=== PATIENT | male | born 1960 | race Caucasian/White ===

== ENCOUNTER → 2017-08-25 07:26 | Outpatient (CLI) | payer BC, SELFPAY ==
[2017-08-25 08:26] LABS: Add Manual Diff / Slide Review NO; Basophils Percent Auto 0.9 % (0-2); Eosinophils Percent Auto 3.1 % (2-4); Hematocrit 40.3 % (41-53); Hemoglobin 13.8 g/dL (13.5-17.5); Lymphocytes Percent Auto 28.7 % (25-40); Mean Corpuscular HGB Conc 34.2 % (30-36); Mean Corpuscular Hemoglobin 31.2 PG (26-34); Mean Corpuscular Volume 91.1 fL (80-100); Monocytes Percent Auto 9.8 % (3-14); Neutrophils Absolute Auto 2700 /uL (3000-5900); Neutrophils Percent Auto 57.5 % (50-75); Platelet Count 171 X10^3/uL (150-400); Red Blood Cell Count 4.42 X10^6/uL (4.5-5.9); Red Cell Distribution Width 12.7 % (11.6-14.8); White Blood Cell Count 4.7 X10^3/uL (4.5-11.0)
[2017-08-25 09:09] LABS: Alanine Aminotransferase 36 IU/L (21-72); Albumin 4.5 g/dL (3.5-5.0); Albumin Globulin Ratio 1.7 (1.0-2.8); Alkaline Phosphatase 55 U/L (38-126); Aspartate Aminotransferase 32 IU/L (17-59); BUN Creatinine Ratio 12.5 (6-22); Bilirubin Total 0.7 mg/dL (0.2-1.3); Calcium 9.7 mg/dL (8.4-10.2); Cholesterol 165 mg/dL (140-199); Estimated Glomerular Filt Rate > 60.0 mL/min (>60); Globulin 2.7 g/dL (1.7-4.1); Glucose 96 mg/dL (70-100); HDL Cholesterol 61 mg/dL (40-60); HEMOLYSIS < 15 (0-50); LDL Cholesterol Calculated 89 mg/dL (<100); Potassium 4.2 mmol/L (3.4-5.1); Sodium 143 mmol/L (137-145); Total Protein 7.2 g/dL (6.3-8.2); Triglycerides 77 mg/dL (35-150)
[2017-08-25 09:28] LABS: Thyroid Stimulating Hormone 3.19 uIU/mL (0.47-4.68)
== END ==
PROVIDERS: PCP Family Medicine; Visit Provider Family Medicine
DX: Z13.1 Encounter for screening for diabetes mellitus (principal); Z13.0 Encounter for screening for diseases of the blood and blood-forming organs and certain disorders involving the immune mechanism; E78.2 Mixed hyperlipidemia; Z13.29 Encounter for screening for other suspected endocrine disorder; Z12.5 Encounter for screening for malignant neoplasm of prostate
CPT/HCPCS: 36415; 80053; 80061; 84153; 84443; 85025

== ENCOUNTER 2018-08-17 13:28 | Day surgery (SDC) | payer BC, SELFPAY ==
--- NOTE | 2018-08-17 | PATH_ITS ---
[facility] Accession Number: [id number] . 01 Material submitted: . PART A: hepatic flexure - SMALL SESSILE POLYP HEPATIC FLEXURE PART B: rectum - DISTAL RECTAL FEDUNCULATED POLYP . 02 Diagnosis: A. Hepatic Flexure, Small Sessile Polyp, Biopsy: Tubular adenoma. . B. Distal Rectum, Pedunculated Polyp, Biopsy: Hyperplastic polyp. 08/19/2018 . 02 Electronically signed: . Sierra Foreman MD, Pathologist NPI- [id number] . 01 Gross description: . Part A: SMALL SESSILE POLYP HEPATIC FLEXURE: Received in formalin is 1 fragment(s) of gallegos, soft tissue measuring 0.4 x 0.3 x 0.3 cm submitted entirely in 1 cassette(s) Part B: DISTAL RECTAL FEDUNCULATED POLYP: Received in formalin is 1 fragment(s) of gallegos, soft tissue measuring 0.4 x 0.4 x 0.4 cm submitted entirely in 1 cassette(s) /CKI /CKI . 02 Pathologist provided ICD-10: D12.3 . 02 CPT . 916955, [id number] Performed at: 01 [facility] [address], [place], [place] [id number] MD Mulugeta Hoover MD Phone: [phone] Performed at: 02 [facility] [place] [address] [place], [place] [id number] MD Sierra Foreman MD Phone: [phone]
[2018-08-17 13:48] VITALS: BP 155/85; PULSE 60; RESP 16; TEMP 36.5; O2SAT 99; BMI 24.3
[2018-08-17 13:57] VITALS: BMI 24.3
[2018-08-17] MEDS: SODIUM CHLORIDE 0.9% 1,000 ML 200 ML IV (13:58)
--- NOTE | 2018-08-17 14:07 | PM.HP.1 ---
History of Present Illness Date Patient Seen: 08/17/18 Time Patient Seen: 14:08 Chief complaint: [id number] Narrative: 58-year-old man presents for 1st ever screening colonoscopy He is without bowel complaints. No family history of colon/rectal cancer or colon/rectal polyps Generally feels quite well He tolerated his prep Patient History Medical History (Updated 09/02/17 @ 15:26 by Christie Everett) Acne (Chronic) Factor V Leiden (Chronic) Mitral valve prolapse (Chronic ~1981) Musculoskeletal disorder (Chronic ~2000) Tinnitus (Chronic ~2009) Chicken pox (Resolved) Surgical History (Updated 09/02/17 @ 15:26 by Christie Everett) Anesthesia (Resolved) Surgical procedure planned (Resolved ~1985) Family History (Updated 08/20/15 @ 00:00 by Conversion Provider) Brother Age: 61 Diabetes mellitus Mother Age: 94 Hypertension Grandfather Heart disease Grandmother Cancer Sister Age: 60 Hypertension Father No problems noted. Grandfather No problems noted. Grandmother No problems noted. Social History household members: spouse and children Family & Social History Family History (Updated 08/20/15 @ 00:00 by Conversion Provider) Brother Age: 61 Diabetes mellitus Mother Age: 94 Hypertension Grandfather Heart disease Grandmother Cancer Sister Age: 60 Hypertension Father No problems noted. Grandfather No problems noted. Grandmother No problems noted. Social History: household members spouse,children Meds Home Medications Medication Instructions Recorded Confirmed Type CA PANTOTHENATE/FOLIC ACID/VIT 1 tab PO Q DAY #0 09/23/11 08/17/18 History (MULTIVITAMIN) aspirin 81 mg PO QDAY #0 06/14/12 08/17/18 History atorvastatin 10 mg tablet 10 mg PO HS #60 tab 08/05/18 08/17/18 Rx Allergies Allergy/AdvReac Type Severity Reaction Status Date / Time Sulfa (Sulfonamide Allergy Mild RASH Verified 08/17/18 13:43 Antibiotics) [SULFA (SULFONAMIDE ANTIBIOTICS)] Review of Systems Constitutional Constitutional: Denies fever(s) Eyes Eyes: Denies bulging eyes ENT Ears, Nose, Mouth, and Throat: No lip swelling Cardiovascular Cardiovascular: Denies generalize swelling Respiratory Respiratory: Denies stridor Gastrointestinal Gastrointestinal: Denies coffee ground emesis Musculoskeletal Musculoskeletal: Denies loss of height Integumentary/Breasts Skin/Breast: Denies wounds Neurologic Neurologic: Denies abnormal speech and Denies confusion Psychiatric Psychiatric: Denies confusion Endocrine Endocrine: Denies deepening of the voice Hematologic/Lymphatic Hematologic/Lymphatic: Denies lymphadenopathy Allergic/Immunologic Allergic/Immunologic: Denies lip swelling Exam Vital Signs (past 8 hours): - 08/17/18 13:48 Temperature 97.7 F Pulse Rate 60 Respiratory Rate 16 Blood Pressure 155/85 H Pulse Oximetry 99 Oxygen Delivery Method Room Air Const General: cooperative and healthy appearing Orientation: alert [facility] Head: normal to inspection Nose: nares normal Mouth: oral mucosae normal and lip normal Eyes Eyelids: eyelids normal Conjunctivae: conjunctivae normal Sclera: sclerae normal Neck Neck: supple and other (No thyromegally) Chest Chest: other (LCTAB , regular respiratory effort) Cardio Rhythm: regular rhythm Heart Sounds: S1 normal, S2 normal, no gallops, no murmurs and no rubs GI Other: Abdomen soft nontender nondistended Skin General: no rashes or lesions noted Neuro General: alert and awake Psych Appearance: grossly normal Affect: normal affect Assessment & Plan Assessment & Plan narrative: 58-year-old man presents for 1st ever screening colonoscopy Risks of surgery including bleeding, infection, perforation risk of , risk of missed lesion, risk of hypoxia all discussed Patient is ready to proceed
[2018-08-17] MEDS: MIDAZOLAM 5 MG/5 ML VIAL IV (14:46)
[2018-08-17] MEDS: fentaNYL 250 MCG/5 ML INJ IV (14:47)
[2018-08-17 15:20] VITALS: BP 103/63; PULSE 53; RESP 20; TEMP 36.2; O2SAT 95
--- NOTE | 2018-08-17 15:20 | P.OP.ENDO_ITS ---
Operative Date/Time/Diagnoses Date of procedure: 08/17/18 Time of procedure: 15:13 Pre-op diagnosis: Screening colonoscopy Post-op diagnosis: other (Colon polyp, rectal polyp, diverticulosis) Procedure & Clinicians Study performed: Screening colonoscopy, cold biopsy forceps polypectomy, hot snare polypectomy Same procedure as scheduled: No (As above) Indications: 58-year-old man of average colorectal cancer risk presents for 1st ever screening colonoscopy Surgeon: Keon Sanders Procedure Notes SCOAP/Timeout: completed Procedure in detail: Patient was taken to the endoscopy suite, a time-out was completed. He was sedated with midazolam and fentanyl. A digital rectal exam was performed that demonstrated an enlarged but soft prostate no nodules or leasions palpated. 160 cm colonoscope was introduced. In the rectum insufflated. Almost immediately a small pedunculated distal rectal polyp was identified. This was left in place and removed later in the case. The colonoscope was then advanced up through the rectosigmoid junction through the sigmoid colon which was markedly tortuous and contained extensive diverticular disease. Eventually were able to enter into the left colon navigate the splenic flexure and moved through the triangular folds of the transverse colon. The hepatic flexure was readily negotiated and the right-sided colon was entered - this also had diverticular disease. Cecum was visualized with IC valve gross foot as well as the appendiceal orifice. The endoscope was slowly withdrawn. At the hepatic flexure there was a small sessile polyp which was removed with cold biopsy forceps. The remainder the scope was notable for diverticular disease within the left colon as well as sigmoid. The distal rectal polyp was re-identified and removed with a hot snare. It was suctioned and obtained via suction trap. The scope was retroflexed demonstrating no additional distal rectal lesion Prep was adequate Scope withdrawal time: 14 minutes Sedation minutes: 57 Findings: diverticulosis (As above) and polyp (As above) Specimen(s): other (1. Hepatic flexure small sessile polyp, 2. Distal rectal pedunculated polyp small ) Complications: none Impression: -enlarged prostate -extensive sigmoid diverticulosis, more limited diverticulosis of the right and left colon -small sessile polyp of the hepatic flexure status post -cold biopsy forcep polypectomy -small pedunculated distal rectal polyp status post hot snare polypectomy Recommendations: Colonscopy in 5 years Plan for aftercare: PACU and home Follow up: as needed Disposition: PACU
[2018-08-17 15:25] VITALS: BP 110/65; PULSE 54; RESP 20; O2SAT 96
[2018-08-17 15:30] VITALS: BP 117/78; PULSE 78; RESP 18; O2SAT 94
[2018-08-17 15:35] VITALS: BP 120/67; PULSE 62; RESP 15; TEMP 36.3; O2SAT 96
[2018-08-17 15:40] VITALS: BP 109/67; PULSE 54; RESP 15; TEMP 36.3; O2SAT 99
== END 2018-08-17 15:51 | disposition home or self-care (01) ==
PROVIDERS: PCP Family Medicine; Visit Provider Surgery
PROC: 0DJD8ZZ Inspection of Lower Intestinal Tract, Via Natural or Artificial Opening Endoscopic (ICD-10-PCS; CPT 45378; principal; 2018-08-17 15:00)
DX: Z12.11 Encounter for screening for malignant neoplasm of colon (principal); K57.30 Diverticulosis of large intestine without perforation or abscess without bleeding; N40.0 Benign prostatic hyperplasia without lower urinary tract symptoms; D68.51 Activated protein C resistance; D12.3 Benign neoplasm of transverse colon
CPT/HCPCS: 45385; 45380; 99152; 99153; J2250; J3010

== ENCOUNTER → 2018-10-12 07:13 | Outpatient (CLI) | payer BC, SELFPAY ==
[2018-10-12 07:55] LABS: Add Manual Diff / Slide Review NO; Basophils Absolute Auto 0 /uL (0-100); Basophils Percent Auto 0.8 % (0-2); Eosinophils Absolute Auto 100 /uL (0-450); Eosinophils Percent Auto 2.3 % (2-4); Hematocrit 42.9 % (41-53); Hemoglobin 14.7 g/dL (13.5-17.5); Lymphocytes Absolute Auto 1300 /uL (1100-4500); Lymphocytes Percent Auto 26.6 % (25-40); Mean Corpuscular HGB Conc 34.3 % (30-36); Mean Corpuscular Hemoglobin 31.5 PG (26-34); Mean Corpuscular Volume 91.8 fL (80-100); Monocytes Absolute Auto 400 /uL (0-900); Monocytes Percent Auto 9.3 % (3-14); Neutrophils Absolute Auto 2900 /uL (1500-7000); Platelet Count 205 X10^3/uL (150-400); Red Blood Cell Count 4.67 X10^6/uL (4.5-5.9); Red Cell Distribution Width 12.8 % (11.6-14.8); White Blood Cell Count 4.8 X10^3/uL (4.5-11.0)
[2018-10-12 08:05] LABS: Alanine Aminotransferase 31 IU/L (21-72); Albumin 4.6 g/dL (3.5-5.0); Albumin Globulin Ratio 1.8 (1.0-2.8); Alkaline Phosphatase 59 U/L (38-126); Aspartate Aminotransferase 31 IU/L (17-59); BUN Creatinine Ratio 13.3 (6-22); Bilirubin Total 0.7 mg/dL (0.2-1.3); Blood Urea Nitrogen 12 mg/dL (9-20); Carbon Dioxide 26 mmol/L (22-32); Chloride 108 mmol/L (98-107); Cholesterol 164 mg/dL (140-199); Estimated Glomerular Filt Rate > 60.0 mL/min (>60); Globulin 2.6 g/dL (1.7-4.1); Glucose 101 mg/dL (70-100); HDL Cholesterol 44 mg/dL (40-60); HEMOLYSIS < 15 (0-50); LDL Cholesterol Calculated 101 mg/dL (<100); Potassium 4.4 mmol/L (3.4-5.1); Sodium 143 mmol/L (137-145); Total Protein 7.2 g/dL (6.3-8.2); Triglycerides 95 mg/dL (35-150)
[2018-10-12 08:34] LABS: Prostate Specific Antigen Scrn 1.33 ng/mL (0.1-4.0)
== END ==
PROVIDERS: PCP Family Medicine; Visit Provider Family Medicine
DX: E78.2 Mixed hyperlipidemia (principal); Z12.5 Encounter for screening for malignant neoplasm of prostate; Z13.29 Encounter for screening for other suspected endocrine disorder; Z13.6 Encounter for screening for cardiovascular disorders
CPT/HCPCS: 36415; 80053; 80061; 84443; 85025; G0103

== ENCOUNTER → 2020-02-23 07:45 | Outpatient (CLI) | payer BC, SELFPAY ==
[2020-02-23 08:36] LABS: Add Manual Diff / Slide Review NO; Basophils Absolute Auto 100 /uL (0-100); Basophils Percent Auto 1.5 % (0-2); Eosinophils Absolute Auto 200 /uL (0-450); Eosinophils Percent Auto 4.2 % (2-4); Hematocrit 39.9 % (41-53); Hemoglobin 13.5 g/dL (13.5-17.5); Lymphocytes Absolute Auto 1100 /uL (1100-4500); Lymphocytes Percent Auto 26.2 % (25-40); Mean Corpuscular HGB Conc 33.9 % (30-36); Mean Corpuscular Hemoglobin 31.4 PG (26-34); Mean Corpuscular Volume 92.6 fL (80-100); Monocytes Absolute Auto 400 /uL (0-900); Monocytes Percent Auto 9.1 % (3-14); Neutrophils Absolute Auto 2400 /uL (1500-7000); Platelet Count 175 X10^3/uL (150-400); Red Blood Cell Count 4.31 X10^6/uL (4.5-5.9); Red Cell Distribution Width 12.5 % (11.6-14.8); White Blood Cell Count 4.1 X10^3/uL (4.5-11.0)
[2020-02-23 09:33] LABS: Alanine Aminotransferase 29 IU/L (<50); Albumin 4.2 g/dL (3.5-5.0); Albumin Globulin Ratio 1.8 (1.0-2.8); Alkaline Phosphatase 52 U/L (38-126); Aspartate Aminotransferase 27 IU/L (17-59); BUN Creatinine Ratio 16.7 (6-22); Bilirubin Total 0.4 mg/dL (0.2-1.3); Blood Urea Nitrogen 12 mg/dL (9-20); Calcium 9.6 mg/dL (8.4-10.2); Carbon Dioxide 26 mmol/L (22-32); Chloride 106 mmol/L (98-107); Cholesterol 152 mg/dL (140-199); Estimated Glomerular Filt Rate > 60.0 mL/min (>60); Globulin 2.4 g/dL (1.7-4.1); Glucose 99 mg/dL (80-110); HDL Cholesterol 48 mg/dL (40-60); HEMOLYSIS < 15 (0-50); LDL Cholesterol Calculated 75 mg/dL (<100); Potassium 4.5 mmol/L (3.4-5.1); Sodium 138 mmol/L (137-145); Total Protein 6.6 g/dL (6.3-8.2); Triglycerides 146 mg/dL (35-150)
[2020-02-23 10:03] LABS: Prostate Specific Antigen Scrn 1.53 ng/mL (0.1-4.0)
[2020-02-23 10:04] LABS: Thyroid Stimulating Hormone 2.28 uIU/mL (0.47-4.68)
== END ==
PROVIDERS: PCP Family Medicine; Referring Provider Family Medicine; Visit Provider Family Medicine
DX: E78.2 Mixed hyperlipidemia (principal); Z12.5 Encounter for screening for malignant neoplasm of prostate
CPT/HCPCS: 36415; 80053; 80061; 84443; 85025; G0103

== ENCOUNTER → 2021-05-18 09:47 | Outpatient (CLI) | payer BC, SELFPAY ==
[2021-05-18 11:12] LABS: Add Manual Diff / Slide Review NO; Basophils Absolute Auto 0 /uL (0-100); Basophils Percent Auto 1.4 % (0-2); Eosinophils Absolute Auto 200 /uL (0-450); Eosinophils Percent Auto 5.3 % (2-4); Hematocrit 37.2 % (41-53); Hemoglobin 12.8 g/dL (13.5-17.5); Lymphocytes Absolute Auto 900 /uL (1100-4500); Lymphocytes Percent Auto 26.7 % (25-40); Mean Corpuscular HGB Conc 34.4 % (30-36); Monocytes Absolute Auto 300 /uL (0-900); Monocytes Percent Auto 10.4 % (3-14); Neutrophils Absolute Auto 1800 /uL (1500-7000); Neutrophils Percent Auto 56.2 % (50-75); Platelet Count 169 X10^3/uL (150-400); Red Cell Distribution Width 12.9 % (11.6-14.8); White Blood Cell Count 3.2 X10^3/uL (4.5-11.0)
[2021-05-18 11:33] LABS: Alanine Aminotransferase 20 IU/L (<50); Albumin 4.3 g/dL (3.5-5.0); Albumin Globulin Ratio 1.9 (1.0-2.8); Alkaline Phosphatase 40 U/L (38-126); Aspartate Aminotransferase 31 IU/L (17-59); BUN Creatinine Ratio 13.9 (6-22); Bilirubin Total 0.4 mg/dL (0.2-1.3); Blood Urea Nitrogen 11 mg/dL (9-20); Calcium 9.7 mg/dL (8.4-10.2); Carbon Dioxide 30 mmol/L (22-32); Chloride 107 mmol/L (98-107); Cholesterol 148 mg/dL (140-199); Estimated Glomerular Filt Rate > 60.0 mL/min (>60); Globulin 2.3 g/dL (1.7-4.1); Glucose 100 mg/dL (80-110); HDL Cholesterol 67 mg/dL (40-60); HEMOLYSIS < 15 (0-50); LDL Cholesterol Calculated 74 mg/dL (<100); Potassium 4.2 mmol/L (3.4-5.1); Sodium 140 mmol/L (137-145); Total Protein 6.6 g/dL (6.3-8.2); Triglycerides 37 mg/dL (35-150)
[2021-05-18 12:02] LABS: Prostate Specific Antigen Scrn 1.98 ng/mL (0.1-4.0)
[2021-05-18 12:55] LABS: TSH w/ Reflex to FT4 1.47 uIU/mL (0.47-4.68)
== END ==
PROVIDERS: PCP Family Medicine; Referring Provider Family Medicine; Visit Provider Family Medicine
DX: D68.51 Activated protein C resistance (principal); E78.2 Mixed hyperlipidemia; Z12.5 Encounter for screening for malignant neoplasm of prostate
CPT/HCPCS: 36415; 80053; 80061; 84443; 85025; G0103

== ENCOUNTER → 2021-09-03 09:48 | Outpatient (CLI) | payer BC, SELFPAY ==
[2021-09-03 10:40] LABS: Add Manual Diff / Slide Review NO; Basophils Absolute Auto 100 /uL (0-100); Basophils Percent Auto 1.4 % (0-2); Eosinophils Absolute Auto 200 /uL (0-450); Eosinophils Percent Auto 6.1 % (2-4); Hematocrit 39.3 % (41-53); Hemoglobin 13.5 g/dL (13.5-17.5); Lymphocytes Absolute Auto 1400 /uL (1100-4500); Lymphocytes Percent Auto 34.1 % (25-40); Mean Corpuscular HGB Conc 34.4 % (30-36); Mean Corpuscular Hemoglobin 31.8 PG (26-34); Mean Corpuscular Volume 92.4 fL (80-100); Monocytes Absolute Auto 400 /uL (0-900); Monocytes Percent Auto 9.5 % (3-14); Neutrophils Absolute Auto 1900 /uL (1500-7000); Neutrophils Percent Auto 48.9 % (50-75); Platelet Count 167 X10^3/uL (150-400); Red Blood Cell Count 4.25 X10^6/uL (4.5-5.9); Red Cell Distribution Width 12.8 % (11.6-14.8)
== END ==
PROVIDERS: PCP Family Medicine; Referring Provider Family Medicine; Visit Provider Family Medicine
DX: D72.819 Decreased white blood cell count, unspecified (principal)
CPT/HCPCS: 36415; 85025

== ENCOUNTER → 2022-06-17 09:11 | Outpatient (CLI) | payer BC, SELFPAY ==
[2022-06-17 09:48] LABS: Add Manual Diff / Slide Review NO; Basophils Absolute Auto 0 /uL (0-100); Basophils Percent Auto 0.8 % (0-2); Eosinophils Absolute Auto 200 /uL (0-450); Hematocrit 39.7 % (41-53); Hemoglobin 13.5 g/dL (13.5-17.5); Lymphocytes Absolute Auto 1400 /uL (1100-4500); Lymphocytes Percent Auto 30.1 % (25-40); Mean Corpuscular Hemoglobin 31.3 PG (26-34); Mean Corpuscular Volume 92.2 fL (80-100); Monocytes Absolute Auto 400 /uL (0-900); Monocytes Percent Auto 9.6 % (3-14); Neutrophils Absolute Auto 2500 /uL (1500-7000); Neutrophils Percent Auto 54.5 % (50-75); Platelet Count 183 X10^3/uL (150-400); Red Blood Cell Count 4.31 X10^6/uL (4.5-5.9); Red Cell Distribution Width 12.6 % (11.6-14.8); White Blood Cell Count 4.5 X10^3/uL (4.5-11.0)
[2022-06-17 10:05] LABS: HEMOLYSIS < 15 (0-50)
[2022-06-17 10:12] LABS: Alanine Aminotransferase 46 IU/L (<50); Albumin 4.3 g/dL (3.5-5.0); Albumin Globulin Ratio 1.7 (1.0-2.8); Alkaline Phosphatase 57 U/L (38-126); Aspartate Aminotransferase 37 IU/L (17-59); BUN Creatinine Ratio 18.3 (6-22); Bilirubin Total 0.6 mg/dL (0.2-1.3); Blood Urea Nitrogen 13 mg/dL (9-20); Calcium 9.3 mg/dL (8.4-10.2); Carbon Dioxide 27 mmol/L (22-32); Chloride 106 mmol/L (98-107); Cholesterol 169 mg/dL (140-199); Estimated Glomerular Filt Rate > 60 mL/min (>60); Globulin 2.5 g/dL (1.7-4.1); Glucose 91 mg/dL (80-110); HDL Cholesterol 56 mg/dL (40-60); LDL Cholesterol Calculated 88 mg/dL (<100); Potassium 4.1 mmol/L (3.4-5.1); Sodium 139 mmol/L (137-145); Total Protein 6.8 g/dL (6.3-8.2); Triglycerides 124 mg/dL (35-150)
[2022-06-20 04:27] LABS: Prostate Specific Antigen Scrn 1.79 ng/mL (0.1-4.0)
== END ==
PROVIDERS: PCP Family Medicine; Referring Provider Family Medicine; Visit Provider Family Medicine
DX: D68.51 Activated protein C resistance (principal); E78.2 Mixed hyperlipidemia; D72.819 Decreased white blood cell count, unspecified; Z12.5 Encounter for screening for malignant neoplasm of prostate
CPT/HCPCS: 36415; 80053; 80061; 85025; G0103

== ENCOUNTER → 2023-07-02 08:11 | Outpatient (CLI) | payer BC, SELFPAY ==
[2023-07-02 08:30] LABS: Add Manual Diff / Slide Review NO; Basophils Absolute Auto 0 /uL (0-100); Basophils Percent Auto 0.8 % (0-2); Eosinophils Absolute Auto 200 /uL (0-450); Eosinophils Percent Auto 4.2 % (2-4); Hematocrit 40.4 % (41-53); Hemoglobin 13.6 g/dL (13.5-17.5); Lymphocytes Absolute Auto 1500 /uL (1100-4500); Lymphocytes Percent Auto 32.3 % (25-40); Mean Corpuscular HGB Conc 33.8 % (30-36); Mean Corpuscular Hemoglobin 31.9 PG (26-34); Mean Corpuscular Volume 94.3 fL (80-100); Monocytes Absolute Auto 500 /uL (0-900); Monocytes Percent Auto 9.6 % (3-14); Neutrophils Absolute Auto 2500 /uL (1500-7000); Neutrophils Percent Auto 53.1 % (50-75); Platelet Count 181 X10^3/uL (150-400); Red Blood Cell Count 4.28 X10^6/uL (4.5-5.9); Red Cell Distribution Width 12.7 % (11.6-14.8); White Blood Cell Count 4.7 X10^3/uL (4.5-11.0)
[2023-07-02 09:11] LABS: Alanine Aminotransferase 33 IU/L (<50); Albumin 4.3 g/dL (3.5-5.0); Albumin Globulin Ratio 1.9 (1.0-2.8); Alkaline Phosphatase 51 U/L (38-126); Aspartate Aminotransferase 32 IU/L (17-59); BUN Creatinine Ratio 17.4 (6-22); Bilirubin Total 0.5 mg/dL (0.2-1.3); Blood Urea Nitrogen 12 mg/dL (9-20); Calcium 9.8 mg/dL (8.4-10.2); Carbon Dioxide 29 mmol/L (22-32); Chloride 108 mmol/L (98-107); Cholesterol 149 mg/dL (140-199); Estimated Glomerular Filt Rate > 60 mL/min (>60); Globulin 2.3 g/dL (1.7-4.1); Glucose 87 mg/dL (80-110); HDL Cholesterol 61 mg/dL (40-60); LDL Cholesterol Calculated 76 mg/dL (<100); Potassium 4.2 mmol/L (3.4-5.1); Sodium 141 mmol/L (137-145); Total Protein 6.6 g/dL (6.3-8.2); Triglycerides 62 mg/dL (35-150)
[2023-07-02 09:17] LABS: HEMOLYSIS < 15 (0-50)
[2023-07-02 10:04] LABS: Prostate Specific Antigen 2.05 ng/mL (0.10-4.00)
[2023-07-03 08:50] LABS: Apolipoprotein B 65 mg/dL (<90)
== END ==
PROVIDERS: PCP Family Medicine; Referring Provider Family Medicine; Visit Provider Family Medicine
DX: Z13.9 Encounter for screening, unspecified (principal); E78.2 Mixed hyperlipidemia
CPT/HCPCS: 36415; 80053; 80061; 82172; 84153; 85025

== ENCOUNTER 2024-04-07 12:21 | Day surgery (SDC) | payer BC, SELFPAY ==
[2024-04-07] MEDS: SODIUM CHLORIDE 0.9% 1,000 ML 100 ML IV (12:39)
[2024-04-07 12:47] VITALS: BP 140/70; PULSE 57; RESP 16; TEMP 36.1; O2SAT 99
--- NOTE | 2024-04-07 13:09 | P.HP_ITS ---
History of Present Illness History of Present Illness Date Patient Seen: 04/07/24 Time Patient Seen: 13:10 Chief complaint: Colonoscopy Narrative: Colonoscopy - Because 4-5 yrs ago a screening colonoscopy removed one polyp, and he was told he needs a repeat colonoscopy in 3-5 years, NO change in bowel habits no hematochezia, no loss of weight or change in appetite. [facility] Medical History (Updated 04/07/24 @ 13:13 by Usha Soto MD) Inflamed epidermoid cyst of skin Wart of hand Musculoskeletal disorder (~2000) Acne Chicken pox Mitral valve prolapse (~1981) Factor V Leiden Tinnitus (~2009) Surgical History (Updated 09/02/17 @ 15:26 by Christie Everett) Anesthesia Surgical procedure planned (~1985) Family History (Updated 08/20/15 @ 00:00 by Conversion Provider) Brother Age: 67 Diabetes mellitus Mother Age: 100 Hypertension Grandfather Heart disease Grandmother Cancer Sister Age: 66 Hypertension Father No problems noted. Grandfather No problems noted. Grandmother No problems noted. Social History household members: spouse and children Smoking Status: Former smoker Meds Home Medications and Allergies Home Medications Medication Instructions Recorded Confirmed Type CA PANTOTHENATE/FOLIC ACID/VIT 1 tab PO Q DAY ##0 09/23/11 01/25/24 History (MULTIVITAMIN) aspirin 81 mg tablet,delayed 81 mg PO QDAY ##0 06/14/12 01/25/24 History release atorvastatin 10 mg tablet 10 mg PO ONCE PM #90 tabs 11/10/23 01/25/24 Rx sodium,potassium,mag sulfates 17.5 See Rx Instructions PO .COMPLEX 11/17/23 01/25/24 Rx gram-3.13 gram-1.6 gram oral soln #354 mL (Suprep Bowel Prep Kit) cephalexin 500 mg capsule 500 mg PO TID #21 caps 01/25/24 01/25/24 Rx Allergies Allergy/AdvReac Type Severity Reaction Status Date / Time Sulfa (Sulfonamide Allergy Mild RASH Verified 01/25/24 13:51 Antibiotics) [SULFA (SULFONAMIDE ANTIBIOTICS)] Review of Systems Review of Systems ROS: Yes All systems reviewed with the patient and are negative except as otherwise documented Exam Vital Signs (past 8 hours): - 04/07/24 12:47 Temperature 96.9 F L Pulse Rate 57 L Respiratory Rate 16 Blood Pressure 140/70 Pulse Oximetry 99 Oxygen Delivery Method Room Air Oxygen Delivery Method Room Air Narrative Exam Narrative: NORMAL exam, no abdominal abnormalities. Const General: cooperative Assessment & Plan Assessment and plan (1) H/O adenomatous polyp of colon: Problem details: Colonoscopy - Because 4-5 yrs ago a screening colonoscopy removed one polyp, and he was told he needs a repeat colonoscopy in 3-5 years, NO change in bowel habits no hematochezia, no loss of weight or change in appetite. Status: Acute Time-Based Coding :: [TOTAL MINUTES] spent with patient and on the chart (including review of chart, obtaining history, exam, reviewing outside data, placing orders, documenting exam and treatment plan, and counseling patient) on [DATE].
--- NOTE | 2024-04-07 13:13 | P.OP.COLON_ITS ---
Operative Date/Time/Diagnoses Date of procedure: 04/07/24 Time of procedure: 13:13 Procedure Notes Impression: OPERATIVE / PROCEDURE NOTE Johnathan Hunter, 1960, 63,Male,CSN: [id number] 04/07/24 PREOPERATIVE DIAGNOSIS: H/O polypectomy 5 yrs ago. POSTOPERATIVE DIAGNOSIS: Same + Per the colonoscopy to the cecum: SEVERE HI colonic diverticulosis noted but no polyps. His next due colonoscopy will be 7- 10 yrs,. PROCEDURE DONE: Colonoscopy to the cecum. ANESTHESIA: MAC per Anesthesia. COMPLICATIONS: None. SPECIMENS: None. ESTIMATED BLOOD LOSS: NONE. CONDITION: Stable to the PACU. OPERATIVE DESCRIPTION: After proper informed consent was signed by the patient knowing all the risks, benefits, and potential complications and possible alternatives of the procedure, the patient was appropriately identified. Johnathan Hunter underwent a bowel prep that was very efficient yesterday, and the colon was clean. After institution of sedation on his left lateral decubitus position, a rectal exam was performed. Normal rectal and anal tone was found. The Olympus colonoscope was placed into his anus and under direct visualization was advanced from the rectum to the rectosigmoid to the sigmoid to the left colon, splenic flexure, transverse colon, hepatic flexure, ascending colon, and all the way to the cecum. Circumferential visualization of the mucosa was possible. The appendix aperture was noted. The ileocecal valve was noted. No large tumors. No ulcers. No inflammatory bowel disease changes were noted. MULTIPE hi small and large colonic diverticulae noted, but NO polyps. In the rectum, the scope was retroflexed, and Grade I internal hemorrhoids were noted. The scope was straightened back again. The colon was decompressed, and the scope was retracted out uneventfully. The patient tolerated the procedure well without any complications, was sent to the PACU in stable condition. RECOMMENDATIONS: Continue high-fiber diet - 30-40 gm/day with daily fiber supplementation. And f/u colonoscopy in 7-10 yrs.
[2024-04-07 13:40] VITALS: BP 115/59; PULSE 50; RESP 16; TEMP 36.2; O2SAT 95
[2024-04-07 13:45] VITALS: BP 107/59; PULSE 47; RESP 16; O2SAT 95
[2024-04-07 13:54] VITALS: BP 107/59; PULSE 54; RESP 16; O2SAT 98
[2024-04-07 13:59] VITALS: BP 118/74; PULSE 48; RESP 16; TEMP 36.2; O2SAT 98
[2024-04-07 14:04] VITALS: BP 132/74; PULSE 52; RESP 16; O2SAT 96
== END 2024-04-07 14:15 | disposition home or self-care (01) ==
PROVIDERS: PCP Family Medicine; Referring Provider Surgery; Visit Provider Surgery
PROC: 0DJD8ZZ Inspection of Lower Intestinal Tract, Via Natural or Artificial Opening Endoscopic (ICD-10-PCS; CPT 45378; principal; 2024-04-07 13:30)
DX: Z12.11 Encounter for screening for malignant neoplasm of colon (principal); Z86.0100 Personal history of colon polyps, unspecified; K64.0 First degree hemorrhoids; K57.30 Diverticulosis of large intestine without perforation or abscess without bleeding
CPT/HCPCS: 45378; J2704

== ENCOUNTER → 2024-09-20 07:22 | Outpatient (CLI) | payer MEDICARE, OTHER, SELFPAY ==
[2024-09-20 08:07] LABS: Add Manual Diff / Slide Review NO; Basophils Absolute Auto 0 /uL (0-100); Basophils Percent Auto 1.2 % (0-2); Eosinophils Absolute Auto 200 /uL (0-450); Eosinophils Percent Auto 3.9 % (2-4); Hematocrit 41.6 % (41-53); Lymphocytes Absolute Auto 1100 /uL (1100-4500); Lymphocytes Percent Auto 26.4 % (25-40); Mean Corpuscular HGB Conc 33.7 % (30-36); Mean Corpuscular Hemoglobin 31.9 PG (26-34); Mean Corpuscular Volume 94.7 fL (80-100); Monocytes Absolute Auto 400 /uL (0-900); Monocytes Percent Auto 9.9 % (3-14); Neutrophils Absolute Auto 2500 /uL (1500-7000); Neutrophils Percent Auto 58.6 % (50-75); Platelet Count 174 X10^3/uL (150-400); Red Cell Distribution Width 13.2 % (11.6-14.8); White Blood Cell Count 4.2 X10^3/uL (4.5-11.0)
[2024-09-20 08:26] LABS: Alanine Aminotransferase 23 IU/L (<50); Albumin 4.7 g/dL (3.5-5.0); Alkaline Phosphatase 56 U/L (38-126); Aspartate Aminotransferase 30 IU/L (17-59); BUN Creatinine Ratio 19.2 (6-22); Bilirubin Total 0.9 mg/dL (0.2-1.3); Blood Urea Nitrogen 14 mg/dL (9-20); Calcium 9.8 mg/dL (8.4-10.2); Carbon Dioxide 22 mmol/L (22-32); Chloride 106 mmol/L (98-107); Cholesterol 165 mg/dL (140-199); Estimated Glomerular Filt Rate > 60 mL/min (>60); Globulin 2.3 g/dL (1.7-4.1); Glucose 100 mg/dL (70-99); HDL Cholesterol 65 mg/dL (40-60); HEMOLYSIS < 15 (0-50); LDL Cholesterol Calculated 87 mg/dL (<100); Potassium 4.4 mmol/L (3.4-5.1); Sodium 138 mmol/L (137-145); Triglycerides 65 mg/dL (35-150)
[2024-09-20 08:55] LABS: Prostate Specific Antigen 2.56 ng/mL (0.10-4.00)
[2024-09-21 04:10] LABS: Apolipoprotein B 69 mg/dL (<90)
== END ==
PROVIDERS: PCP Family Medicine; Referring Provider Family Medicine; Visit Provider Family Medicine
DX: D68.51 Activated protein C resistance (principal); E78.2 Mixed hyperlipidemia; Z12.5 Encounter for screening for malignant neoplasm of prostate
CPT/HCPCS: 36415; 80053; 80061; 82172; 84153; 85025

== ENCOUNTER → 2025-01-02 14:34 | Outpatient (CLI) | payer MEDICARE, OTHER, SELFPAY ==
[2025-01-02 17:41] LABS: Prostate Specific Antigen 2.92 ng/mL (0.10-4.00)
== END ==
PROVIDERS: PCP Family Medicine; Referring Provider Family Medicine; Visit Provider Family Medicine
DX: R97.20 Elevated prostate specific antigen [PSA] (principal)
CPT/HCPCS: 36415; 84153